=== PATIENT | female | born 1975 | race Caucasian/White ===

== ENCOUNTER 2024-07-21 19:47 | Observation (INO) | payer OTHER, SELFPAY ==
[2024-07-21] VITALS (11 sets, daily range): BP systolic 90–122; BP diastolic 45–77; BMI 26.9; BMI 27.2
[2024-07-21 12:45] LABS: % Basophils 0.4 % (0-2); % Eosinophils 0.1 % (0-6); % Immature Granulocytes 0.4 % (0-0.5); % Lymphocytes 4.3 % (20.5-51.1); % Monocytes 1.1 % (1.7-9.3); % Neutrophils 93.7 % (42.2-75.2); Absolute Basophils 0.1 10^3/uL (0-0.2); Absolute Immature Granulocytes 0.1 10^3/uL (0-0.05); Absolute Lymphocytes 0.6 10^3/uL (1.2-3.4); Absolute Monocytes 0.2 10^3/uL (0.1-0.6); Absolute Neutrophils 12.6 10^3/uL (1.4-6.5); Hematocrit 42.8 % (37.0-47.0); Hemoglobin 14.4 g/dL (12.0-16.0); Mean Corp Hgb Conc. 33.6 g/dL (33.0-37.0); Mean Corpuscular Hgb 31.4 pg (27.0-31.0); Mean Corpuscular Volume 93.4 fL (81.0-99.0); Mean Platelet Volume 8.7 fL (7.4-10.4); Nucleated Red Blood Cells % 0 %; Platelet Count 284 10^3/uL (130-400); Red Blood Cell Count 4.58 10^6/uL (4.20-5.40); Red Cell Dist. Width 12.8 % (11.5-14.5); White Blood Cell Count 13.5 10^3/uL (4.8-10.8)
[2024-07-21 12:53] LABS: HCG, Serum Qualitative Screen Negative
[2024-07-21 12:58] LABS: ALT (SGPT) 16 U/L (0-35); AST (SGOT) 16 U/L (14-36); Albumin 3.9 g/dl (3.5-5.0); Alkaline Phosphatase 93 U/L (38-126); Blood Urea Nitrogen 6 mg/dl (7-17); Calcium 8.6 mg/dl (8.4-10.2); Carbon Dioxide 25 mmol/L (22-30); Chloride 104 mmol/L (98-107); Glucose 132 mg/dl (70-99); Lipase 32 U/L (23-300); Potassium 3.7 mmol/L (3.5-5.1); Sodium 139 mmol/L (135-145); Total Bilirubin 0.8 mg/dl (0.2-1.3); Total Protein 6.6 g/dl (6.3-8.2); eGFR > 60.00
[2024-07-21] MEDS: MORPHINE SULFATE 2 MG IV ×2 (13:58→17:05)
[2024-07-21] MEDS: ZOFRAN 4 MG IV ×2 (14:17→18:26)
[2024-07-21 14:40] LABS: Urine Albumin 3+ (Neg - Trace); Urine Bilirubin Negative (Negative); Urine Character Slightly Cloudy (Clear); Urine Color Yellow; Urine Glucose Negative (Negative); Urine Ketone Negative (Negative); Urine Leukocyte 1+ (Negative); Urine Nitrite Negative (Negative); Urine Occult Blood 4+ (Negative); Urine Specific Gravity 1.025 (<1.030); Urine Urobilinogen 1+ (Neg - 1+)
[2024-07-21 14:54] LABS: Urine Bacteria Few (Negative); Urine Red Blood Cell 21-25 /HPF (0-2)
--- NOTE | 2024-07-21 16:51 | ED.GENMED ---
History of Present Illness
General
Chief Complaint: Abdominal Symptoms
Source: patient
Exam Limitations: none
Time Seen by Provider: 07/21/24 13:15
Nursing documentation reviewed up to this point in time: agreed with
History of Present Illness
History of Present Illness:
49-year-old female presenting to the emergency department today with concerns of lower abdominal pain initially to the suprapubic region now mainly to the right lower quadrant associated nausea some urinary frequency. Worsening discomfort today.
Past History
Past History
ED Past Medical History: None; Negative Asthma, HTN, Hypercholesterolemia or NIDDM
ED Past Surgical History: None
Social History
Tobacco: Smoker
Alcohol: None
Personal:
Living: with family
Family History
Family History: Negative Early CAD
Review of Systems
Review of Systems
Allergies reviewed?: Yes
All Other Systems: ROS reviewed and negative except as documented in HPI and ROS
Phy Exam
Physical Exam
Physical Exam:
GENERAL: Alert , in no apparent distress
EYE: pupils equal and reactive
NECK: Supple, no significant adenopathy.
ENT: o/p clr, mmm.
CARDIAC: Regular rate and rhythm .
LUNGS: Clear breath sounds bilaterally, no acute respiratory distress, no wheezes/rales/rhonchi
ABDOMEN: Right lower quadrant pain otherwise soft abdomen
NEUROLOGICAL: Alert and oriented, no focal neuro deficits
SKIN: Warm and dry, skin intact.
MUSCULOSKELETAL: No edema, well perfused.
PSYCH: Normal and appropriate interaction.
Course
Orders/Labs/Results
Orders:
Orders
07/21/24 12:20
Test Result ONCE
07/21/24 12:27
Complete Blood Count/With Diff Urgent
Comprehensive Metabolic Panel Urgent
HCG, Serum Qualitative Screen Urgent
Lipase Urgent
07/21/24 13:37
CT Abd/Pel (IV only)-DH only Urgent
Comment:
Reason For Exam: RLq pain
Morphine Sulfate 2 mg IV NOW STA
07/21/24 13:44
Urinalysis Reflex To Culture Urgent
Date Specimen was Collected: 07/21/24
Time Specimen was Collected: 13:39
Urine Microscopic Reflex Cult Urgent
Urine Culture Urgent
IMANI Source: U
Specimen Description:
Date Specimen was Collected: 07/21/24
Time Specimen was Collected: 13:39
07/21/24 13:49
Ondansetron Injectable [Zofran] 4 mg .ROUTE .STK-MED ONE
07/21/24 14:14
Ondansetron Injectable [Zofran] 4 mg IV NOW STA
07/21/24 16:47
Piperacillin/Tazo 4.5 Gram [Zosyn] 4.5 gram in 100 ml IV NOW
07/21/24 16:48
Morphine Sulfate 2 mg IV NOW STA
Abnormal Lab Results
07/21/24 07/21/24
12:27 13:44
WBC 13.5 H 10^3/uL
(4.8-10.8)
MCH 31.4 H pg
(27.0-31.0)
Abs Immat Gran (auto) 0.1 H 10^3/uL
(0-0.05)
Absolute Neuts (auto) 12.6 H 10^3/uL
(1.4-6.5)
Absolute Lymphs (auto) 0.6 L 10^3/uL
(1.2-3.4)
Neutrophils % 93.7 H %
(42.2-75.2)
Lymphocytes % 4.3 L %
(20.5-51.1)
Monocytes % 1.1 L %
(1.7-9.3)
BUN 6 L mg/dl
(7-17)
Glucose 132 H mg/dl
(70-99)
Ur Occult Blood Reflex 4+ A
(Negative)
Leukocyte Esterase Rfl 1+ A
(Negative)
Urine RBC 21-25 A /HPF
(0-2)
Urine Bacteria (Reflex) Few A
(Negative)
Urine Albumin (Reflex) 3+ A
(Neg - Trace)
07/21/24 12:27
07/21/24 12:27
Vital Signs
Initial and Last Documented VS:
Initial Vital Signs
Temp Pulse Resp BP Pulse Ox
98.0 F 120 20 119/77 97
07/21/24 12:17 07/21/24 12:17 07/21/24 12:17 07/21/24 12:17 07/21/24 12:17
Last Documented Vital Signs
Temp Pulse Resp BP Pulse Ox
98.0 F 82 18 91/49 97
07/21/24 12:17 07/21/24 15:25 07/21/24 15:25 07/21/24 15:25 07/21/24 15:25
MDM/Problems Addressed
MDM/Problems Addressed:
49-year-old female presenting to the emergency department today with concerns of lower abdominal pain maximal to the right lower quadrant worsening over the past 2 days. On arrival initially tachycardic but improving without specific treatment.
Patient was given dose of morphine with significant improvement of pain. White count of 13.5. CT scan showing severe acute appendicitis with possible microperforation. Case discussed with surgery and patient was started on Zosyn. Plan to be
admitted to surgical service. Stable throughout ER stay.
*Critical Care Note
Total Time (30-74mins, 75-104mins- exclusive of procedures): Not Applicable
ED Attending Note
-
Portions of this chart may have been created with voice recognition software.� Occasional wrong word or��sound alike� substitutions may have occurred due to the inherent limitations of voice recognition software.
Discharge Plan
Departure
Patient Disposition: Admit
Date of Disposition: 07/21/24
Time of Disposition: 17:04
Admit to: Med/Surg
Admit to doctor: Jolie
Presentation/result/management discussed w/ accepting MD/DO: Gneral surgery
Patient with high blood pressure during this ER visit?: No
Condition: Good
Covid-19: Not Applicable
Discharge Problem:
Acute appendicitis
Prescriptions:
No Action
bupropion HCl 100 MG tablet
100 mg PO BID
Referrals:
Felicita Chávez DO [Family Provider] -
Interventions
Interventions:
*Risk Screen - Suicide Last Done: 07/21/24 12:17
*General Assessment Last Done: 07/21/24 12:17
PK-Gqtafy-Lofczlfntw Assessment Last Done: 07/21/24 13:09
Discharge Date and Time
Print Language: SAMMARINESE
[2024-07-21] MEDS: ZOSYN 100 IV (17:04)
[2024-07-21] MEDS: PROTONIX IV 40 MG IV (18:22)
--- NOTE | 2024-07-21 19:38 | CON.GS ---
Consultation
-
Requesting Provider: Lele
Performing Provider: Jolie
Reason for Consultation: Acute appendicitis
Medical History
-
Chief Complaint: Abd pain
History of Present Illness:
49F with acute onset lower abdominal pain that began 2 days ago. Initially midline now more right lower quadrant. Denies f/c. Endorses nausea denies vomiting. Denies changes to stool/urine though states no BM for 3 days.
Past Medical History
Past Medical History: Reviewed & Noncontributory
Past Surgical History: Reviewed & Noncontributory
Social History
Tobacco: Smoker
Alcohol: None
Drug: None
Personal:
Living: With Family
Family History
Family History: Reviewed & Noncontributory
Allergies / Home Medications
Allergy/AdvReac Type Severity Reaction Status Date / Time
azithromycin Allergy Unknown Verified 07/21/24 12:20
clarithromycin [From Biaxin] Allergy Unknown Verified 07/21/24 17:41
�Medication �Instructions �Recorded �Confirmed �Type
ferrous sulfate 325 mg (65 mg 325 mg PO DAILY 07/21/24 07/21/24 History
iron) tablet
nicotine (polacrilex) 4 mg gum 4 mg buccal Q8HPRN PRN nicotine 07/21/24 07/21/24 History
(Nicorette) dependence
Review of Systems
-
A 10 point review of systems was completed, and was negative except as per HPI.
Physical Exam
Vital Signs
Temp Pulse Resp BP Pulse Ox
98.0 F 72 16 122/72 98
07/21/24 19:31 07/21/24 19:31 07/21/24 19:31 07/21/24 19:31 07/21/24 19:31
07/20/24 07/21/24 07/22/24
06:59 06:59 06:59
Actual Weight 68.946 kg
Body Mass Index (BMI) 26.9
Lab Results
07/21/24 12:
07/21/24 12:
WBC 13.5 10^3/uL (4.8-10.8) H 07/21/24 12:
Hgb 14.4 g/dL (12.0-16.0) 07/21/24 12:
Hct 42.8 % (37.0-47.0) 07/21/24 12:
Plt Count 284 10^3/uL (130-400) 07/21/24 12:
Abs Immat Gran (auto) 0.1 10^3/uL (0-0.05) H 07/21/24 12:
Neutrophils % 93.7 % (42.2-75.2) H 07/21/24 12:
Physical Exam
General: Well Developed, Well Nourished and No Apparent Distress
GI: Soft, Non Distended and Tender (ttp to RLQ, mild)
Skin: Warm and Dry
Neuro: AO x 3
Psych: Calm
Data Reviewed
-
CT Scan: Image Personally Visualized and interpreted, Report Reviewed by me, Discussed with Physician and Discussed with Patient
Labs: Labs Reviewed by me, Discussed with Physician, Discussed with Patient and Discussed with Family
Assessment / Plan
-
49F with acute appendicitis
AFVSS, ttp to RLQ
WBC 13.5
CT c/w acute appendicitis
Plan:
OCTOR for lap appy
IV abx
Admit to surgery
--- NOTE | 2024-07-21 20:50 | W.IMMPOSTOP ---
Surgical Immed Post Op Note
-
Primary Surgeon: Jolie
Pre-op Diagnosis: Acute appendicitis
Post-op Diagnosis: Acute appendicitis with gangrenous changes, perforation and localized peritonitis
Procedure Performed: Laparoscopic appendectomy
Anesthesia Type: GETA
Specimen / Cultures: Appendix
Estimated Blood Loss: 15cc
Complications: None immediate
Operative Findings: Inflamed appendix with yellow purulence in the appendiceal mesentery, very minimal brown stool contamination around distal perforation, gangrenous changes
--- NOTE | 2024-07-21 20:53 | OR.RPT ---
Operative Report
Operative Report
Primary Surgeon: Jolie
Pre-op Diagnosis: Acute appendicitis
Post-op Diagnosis: Acute appendicitis with gangrenous changes, perforation and localized peritonitis
Procedure Performed: Laparoscopic appendectomy
Anesthesia Type: GETA
Specimen / Cultures: Appendix
Estimated Blood Loss: 15cc
Complications: None immediate
Operative Findings: Inflamed appendix with yellow purulence in the appendiceal mesentery, very minimal brown stool contamination around distal perforation, gangrenous changes
Date of Surgery: 07/21/24
Indications: This 49F developed right lower quadrant abdominal pain and on workup was found to have acute appendicitis. Laparoscopic appendectomy was elected.
Description of procedure: The patient was placed on the operating table in the supine position. General anesthesia was induced. A time-out was completed verifying correct patient, procedure, site, positioning, and special equipment prior to
beginning this procedure. An orogastric tube was placed. The abdomen was prepped and draped in the usual sterile fashion. A stab incision was made in left upper quadrant and the Veress needle was inserted. Proper position was confirmed by aspiration
and saline meniscus test. The abdomen was insufflated with carbon dioxide to a pressure of 12 mmHg. The patient tolerated insufflation well.
A 5mm optical trocar was then inserted at the left lower quadrant. The laparoscope was inserted and the abdomen inspected. No injuries from initial trocar placement or Veress needle insertion were noted. Additional trocars were then inserted in the
following locations: a 12-mm trocar at the umbilicus and a 5-mm trocar midline in the suprapubic space. The abdomen was inspected and no abnormalities were found. The table was placed in the Trendelenburg position with the right side up. The tip of
the appendix was deep in the pelvis and adherent to the lateral sidewall. A window was created at the base of the mesentery of the appendix with a maryland grasper and the apendix was taken with a cuff of cecum using a laparoscopic linear cutting
stapler with a 45mm martinez load. This maneuver exposed the appendiceal blood supply which was controlled with the Voyand device by marching in an caudad direction. Ultimately the appendix was freed from the sidewall with blunt sweeps and gentle
traction. A small amount of pus was noted when controlling the mesentery and a small amount of feculent contamination was noted in the deep pelvis. This was irrigated thoroughly with warm sterile saline and suctioned. The appendix was placed in an
endoscopic retrieval bag, removed through the umbilical port, and passed off the table as a specimen.
We then turned our attention to the staple line, which was noted to be hemostatic. All free fluid was suctioned. The umbilical trocar site was closed at the fascial level laparoscopically with 2-0 PDS under direct vision. Secondary trocars were
removed under direct vision and noted to be hemostatic. The laparoscope was withdrawn and the abdomen was allowed to collapse. The skin was closed with subcuticular sutures of 4-0 monocryl and topical skin adhesive. The orogastric tube was removed.
The patient tolerated the procedure well and was taken to the postanesthesia care unit in stable condition.
--- NOTE | 2024-07-21 22:15 | PTCARENOTE ---
Pt received from PACU at 2215 via bed. Pt pleasant, AAOX3, and VSS. Pt complains of mild 3/10 pain at surgical sites. Pt given pain meds - see MAR. Pt bed in lowest position and call solares within reach. Pt educated on importance of call solares usage,
pt relays understanding and cooperation. Will continue with current plan of care.
[2024-07-21] MEDS: DILAUDID 0.5 MG IV (23:00)
[2024-07-21] MEDS: ZOSYN 50 IV (23:43)
[2024-07-22 00:29] VITALS: BP 94/50
[2024-07-22] MEDS: DILAUDID 0.5 MG IV ×2 (03:31→05:58)
[2024-07-22] MEDS: ZOSYN 50 IV (05:06)
[2024-07-22 07:33] VITALS: BP 89/54
--- NOTE | 2024-07-22 08:43 | W.PN.GS2 ---
Addendum entered and electronically signed by Humphrey Dave MD 07/22/24 10:24:
Should have been admitted as Post Surg recovery
Original Note:
Today's Communication / Plan
-
DC
Assessment / Plan
-
49F POD1 s/p lap appy for acute perforated appendicitis with localized peritonitis
AFVSS, meets criteria for DC
Will send with 5 days PO abx to reduce risk of infection
Subjective Data
-
Date of Service: July 22, 2024
AFVSS, ambulating, voiding, karlene PO, pain controlled, denies n/v
Objective Data
-
Intake and Output
07/21/24 07/22/24 07/23/24
06:59 06:59 06:59
Intake Total 480 / 480
Balance 480 / 480
Intake:
Oral fluids 480 / 480
Other:
Number of approximated MODERATE 2
amounts of urine
How many times incontinent 1
MODERATE amount urine
Vital Signs
Temp Pulse Resp BP Pulse Ox
99.1 F 84 18 89/54 98
07/22/24 07:33 07/22/24 07:33 07/22/24 07:33 07/22/24 07:33 07/22/24 07:33
Lab Results
07/21/24 12:27
07/21/24 12:27
Calcium 8.6 mg/dl (8.4-10.2) 07/21/24 12:27
Total Bilirubin 0.8 mg/dl (0.2-1.3) 07/21/24 12:27
AST 16 U/L (14-36) 07/21/24 12:27
ALT 16 U/L (0-35) 07/21/24 12:27
Alkaline Phosphatase 93 U/L (38-126) 07/21/24 12:27
Total Protein 6.6 g/dl (6.3-8.2) 07/21/24 12:27
Albumin 3.9 g/dl (3.5-5.0) 07/21/24 12:27
Physical Exam
-
Gen: NAD
Abd: soft, approp ttp, incisions cdi
Patient has a gonzalez catheter: No
Patient has a central line: No
--- NOTE | 2024-07-22 08:45 | W.DS.TRANS ---
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
-
Discharge Instructions:
Instructions:
Stand-Alone Forms:
Changes to Home Medications: No
Discharge Medications:
DC Medications w/original date entered in [employer]
ferrous sulfate 325 mg (65 mg iron) tablet 325 mg PO DAILY 07/21/24
nicotine (polacrilex) 4 mg gum (Nicorette) 4 mg buccal Q8HPRN PRN nicotine dependence 07/21/24
Home Medication Changes
Pending Results: No
[2024-07-22] MEDS: ULTRAM 50 MG PO (08:51)
--- NOTE | 2024-07-22 11:00 | CM ---
CM discharged home prior to CM completing initial assessment. Home no needs.
Plan; home no needs, discharged prior to IA completed.
== END 2024-07-22 09:50 | disposition home or self-care (01) ==
LOC: 4 WEST ACU 19:47
PROVIDERS: Physician Assistant; ADMITTING PHYSICIAN Surgery; EMERGENCY PHYSICIAN Emergency Medicine; FAMILY PHYSICIAN Family Medicine
PROC: 0DTJ4ZZ Resection of Appendix, Percutaneous Endoscopic Approach (ICD-10-PCS; 2024-07-21)
DX: K35.32 Acute appendicitis with perforation, localized peritonitis, and gangrene, without abscess (principal); F17.200 Nicotine dependence, unspecified, uncomplicated; R00.0 Tachycardia, unspecified; K52.9 Noninfective gastroenteritis and colitis, unspecified
CPT/HCPCS: 88304; 74177; 80053; 81003; 81015; 83690; 84703; 85025; 86850; 86900; 86901; 87086; 93005; 96365; 96375; 96376; 99285; C1776; G0378; Q9967

== ENCOUNTER → 2025-01-14 14:29 | Outpatient (REF) | payer OTHER, SELFPAY | LOC: WDC 14:29 | PROVIDERS: ATTENDING PHYSICIAN Obstetrics & Gynecology Gynecology; FAMILY PHYSICIAN Family Medicine | DX: Z12.31 Encounter for screening mammogram for malignant neoplasm of breast (principal) | CPT/HCPCS: 77063; 77067 ==